=== PATIENT | male | born 1970 | race Two or more races ===

== ENCOUNTER 2017-09-15 00:07 | Emergency (ER) | payer OTHER ==
[2017-09-15] MEDS: NEOMY/BACITR/POLYMYXIN OINT PACKET. TP (00:45)
[2017-09-15] MEDS: BUPIVACAINE 0.5% 50 ML VIAL. INJ (00:45)
[2017-09-15] MEDS: DIPHTH,PERTUSS(ACELL),TET TOX 0.5 ML DISP.SYRIN. VAX IM (00:45)
[2017-09-15] MEDS: CEPHALEXIN 250 MG CAPSULE. PO (00:58)
[2017-09-15] MEDS: HYDROcodone/APAP 5/325MG 1 TAB TABLET PO (00:58)
== END 2017-09-15 01:35 | disposition home or self-care (01) ==
LOC: ER 00:07
DX: S62.635B Displaced fracture of distal phalanx of left ring finger, initial encounter for open fracture (principal); W27.8XXA Contact with other nonpowered hand tool, initial encounter; Y93.89 Activity, other specified; Y92.89 Other specified places as the place of occurrence of the external cause; Y99.8 Other external cause status
CPT/HCPCS: 12002; 73140; 99284; J3490